=== PATIENT | male | born 1960 | race Hispanic/Latino ===

== ENCOUNTER → 2018-04-06 | Day surgery (SDC) | payer OTHER ==
[2018-04-05 11:35] VITALS: BMI 36.8
--- NOTE | 2018-04-06 08:19 | HP ---
DATE OF ADMISSION: 04/06/2018 HISTORY OF PRESENT ILLNESS: This is a 57-year-old [place] male, who comes in for colonoscopy for colon cancer screenig. The patient also complains of indigestion, heartburn, and dyspepsia. The patient also had_ chronic dyspeptic symptoms. ALLERGIES: None. MEDICAL ILLNESSES: Hyperlipidemia and umbilical hernia. SOCIAL HISTORY: Patient is . Does not smoke, but drinks alcohol socially. PHYSICAL EXAMINATION: VITAL SIGNS: Pulse is 70, blood pressure 130/80. HEENT: Conjunctivae clear. CARDIOVASCULAR: First and second heart sounds. LUNGS: Clear to auscultation. ABDOMEN: Soft . No organomegaly. No tenderness. No masses. ADMITTING DIAGNOSES: 1. Chronic acid reflux. 2. Colon cancer screening. PLAN: EGD and colonoscopy. MTDD
== END ==
LOC: SDC 07:02
PROVIDERS: ATTEND Internal Medicine Gastroenterology
DX: Z12.11 Encounter for screening for malignant neoplasm of colon (principal); Z53.9 Procedure and treatment not carried out, unspecified reason; E78.5 Hyperlipidemia, unspecified; R10.13 Epigastric pain

== ENCOUNTER 2021-09-03 10:57 | Day surgery (SDC) | payer OTHER ==
[2021-08-30 10:11] VITALS: BMI 34.8
[2021-09-03] MEDS ORDERED: Bupivacaine PF 0.5% 30 ML VIAL ONE (12:08)
[2021-09-03] MEDS ORDERED: Bacitracin Zinc Ointment 30 gm TUBE ONE (12:08)
[2021-09-03] MEDS ORDERED: Betamet Acet/Betamet Na Ph 30 MG/5 ML VIAL ONE (12:08)
[2021-09-03] MEDS ORDERED: Fentanyl 100 MCG/2 ML VIAL ONE (12:53)
[2021-09-03] MEDS ORDERED: ceFAZolin 2 GM/Dextrose 50 ML IVPB ONE (12:54)
[2021-09-03] MEDS ORDERED: Ketorolac Tromethamine 30 MG/ML VIAL ONE (14:26)
== END 2021-09-03 15:45 | disposition home or self-care (01) ==
LOC: SDC 10:57
PROVIDERS: ATTEND Orthopaedic Surgery Hand Surgery
PROC: 01N50ZZ Release Median Nerve, Open Approach (ICD-10-PCS; principal; 2021-09-03)
DX: G56.03 Carpal tunnel syndrome, bilateral upper limbs (principal); M18.11 Unilateral primary osteoarthritis of first carpometacarpal joint, right hand; E78.5 Hyperlipidemia, unspecified; Z79.899 Other long term (current) drug therapy
CPT/HCPCS: J0690; J0702; J1885; J3010; S0020

== ENCOUNTER 2024-03-25 05:21 | Observation (INO) | payer OTHER ==
[2024-03-20 12:33] VITALS: BMI 36.5
[2024-03-25] MEDS ORDERED: Sodium Chloride 0.9% 100 ML ONE ×2 (06:04→06:54)
[2024-03-25] MEDS ORDERED: Tranexamic Acid 1,000 MG/10 ML VIAL ONE ×2 (06:04→10:05)
[2024-03-25] MEDS ORDERED: Midazolam HCl 2 mg/2 ml Vial ONE (06:12)
[2024-03-25] MEDS ORDERED: fentaNYL PF 100 MCG/2 ML SYRINGE ONE (06:12)
[2024-03-25] MEDS ORDERED: Vancomycin (BATCH) 2 GM in Premix 1 BAG IVPB SCH (06:15)
[2024-03-25] MEDS ORDERED: Lidocaine 1% PF 5 ML VIAL ONE (06:19)
[2024-03-25] MEDS ORDERED: PROPOFOL 20 ML ONE (06:19)
[2024-03-25] MEDS ORDERED: Dexamethasone 20 MG/5 ML VIAL ONE (06:20)
[2024-03-25] MEDS ORDERED: Ketorolac Tromethamine 30 MG (1 mL) VIAL ONE (06:20)
[2024-03-25] MEDS ORDERED: Ondansetron PF 4 MG/2 ML Vial ONE (06:20)
[2024-03-25] MEDS ORDERED: Bupivacaine 0.25% HCL 30 ML VIAL ONE (06:54)
[2024-03-25] MEDS ORDERED: CEFAZOLIN 2 GM VIAL ONE (06:54)
[2024-03-25] MEDS ORDERED: Bupivacaine HCl 0.5%/Epinephrine 1:200,000/PF 30 ml Vial ONE (07:00)
[2024-03-25] MEDS ORDERED: diphenhydrAMINE 25 MG CAP PO PRN (07:10)
[2024-03-25] MEDS ORDERED: HYDROcodone/Acetaminophen 10/325 mg Tablet PO PRN (07:10)
[2024-03-25] MEDS ORDERED: Ondansetron PF 4 MG/2 ML Vial IVP PRN (07:10)
[2024-03-25] MEDS ORDERED: traMADol HCl 50 MG TAB PO PRN ×2 (07:10)
[2024-03-25] MEDS ORDERED: Acetaminophen 325 MG TAB PO PRN (07:10)
[2024-03-25] MEDS ORDERED: Promethazine HCl 25 MG/ML VIAL IM PRN (07:10)
[2024-03-25] MEDS ORDERED: Zolpidem Tartrate 5 MG TAB PO PRN (07:10)
[2024-03-25] MEDS ORDERED: ALPRAZolam 0.25 MG TAB PO PRN ×2 (07:12→07:16)
[2024-03-25] MEDS ORDERED: Tranexamic Acid 1,000 MG in Sodium Chloride 0.9% 100 ML IVPB SCH (07:15)
[2024-03-25] MEDS ORDERED: PHENYLEPHRINE-NS 100 MCG/ML 10 ML SYRINGE ONE (07:26)
[2024-03-25] MEDS ORDERED: fentaNYL 50 mcg/mL 1 mL Vial SLOW IVP PRN (07:47)
[2024-03-25] MEDS ORDERED: Ropivacaine 0.2% 550 ML 550 ML NERVE BLCK SCH (08:00)
[2024-03-25] MEDS ORDERED: fentaNYL 50 mcg/mL 1 mL Vial ONE (08:56)
[2024-03-25] MEDS ORDERED: HYDROmorphone 0.5 MG/0.5 ML SYRINGE ONE ×2 (10:04→10:20)
[2024-03-25] MEDS ORDERED: Meperidine HCl/PF 25 MG (1 mL) VIAL ONE (10:05)
[2024-03-25] MEDS ORDERED: Bupivacaine PF 0.5% 30 ML VIAL ONE (11:29)
[2024-03-25] MEDS ORDERED: Lidocaine 1% (PF) 30 ML VIAL ONE (11:29)
[2024-03-25] MEDS: Gabapentin 400 MG CAP PO SCH (14:51)
[2024-03-25] MEDS: CEFAZOLIN 2 GM in Sodium Chloride 0.9% 100 ML IVPB SCH (14:52)
[2024-03-25] MEDS: Ketorolac Tromethamine 30 MG (1 mL) VIAL IVP SCH (17:36)
[2024-03-25] MEDS: Vancomycin 1.5 GM in Sodium Chloride 0.9% 250 ML 300 ML IVPB SCH (17:37)
[2024-03-25] MEDS: Ferrous Gluconate 324 MG TAB PO SCH (18:27)
[2024-03-25] MEDS: Aspirin 81 mg Enteric Coated Tablet PO SCH (18:27)
[2024-03-25] MEDS: Multivitamin W/ Minerals 1 TAB PO SCH (18:27)
[2024-03-25] MEDS: Sodium Chloride 0.9% 1,000 ML IV SCH (18:27)
[2024-03-25] MEDS: Senokot S 8.6-50 MG TAB PO SCH (18:28)
[2024-03-25] MEDS ORDERED: Rosuvastatin 10 MG TAB PO SCH (21:00)
[2024-03-25] MEDS: HYDROcodone/Acetaminophen 10/325 mg Tablet PO PRN (21:50)
[2024-03-25] MEDS: Rosuvastatin 20 MG TAB PO SCH (21:52)
[2024-03-26 05:37] LABS: Hematocrit 34.6 % (42.0-52.0); Hemoglobin 11.6 g/dL (14.0-18.0); Mean Corpuscular HGB CONC 33.5 g/dL (32.0-36.0); Mean Corpuscular Volume 95.3 fL (78.0-98.0); Mean Platelet Volume 10.4 fL (7.4-10.4); Platelet Count 179 10x3/uL (130-400); RBC Distribution Width 12.7 % (11.5-14.5); Red Blood Cell (RBC) Count 3.63 mill/uL (4.70-6.10)
[2024-03-26] MEDS: FLU (Fluarix Triv) TS24-25(6MOS UP)/PF 45 MCG/0.5 ML Syringe IM ONE (06:36)
[2024-03-26 06:42] VITALS: BP 111/69; TEMP 97.9
== END 2024-03-26 14:01 | disposition home or self-care (01) ==
LOC: SDC 05:21 → SURG B 12:03 → SDC 15:08
PROVIDERS: ADMIT Orthopaedic Surgery; ATTEND Orthopaedic Surgery
PROC: 0SRC0JZ Replacement of Right Knee Joint with Synthetic Substitute, Open Approach (ICD-10-PCS; principal; 2024-03-26)
PROC: 3E0T3BZ Introduction of Anesthetic Agent into Peripheral Nerves and Plexi, Percutaneous Approach (ICD-10-PCS; 2024-03-26)
DX: M17.11 Unilateral primary osteoarthritis, right knee (principal); E78.5 Hyperlipidemia, unspecified; K42.9 Umbilical hernia without obstruction or gangrene; E11.9 Type 2 diabetes mellitus without complications; F41.9 Anxiety disorder, unspecified; E78.00 Pure hypercholesterolemia, unspecified; Z86.16 Personal history of COVID-19; Z79.899 Other long term (current) drug therapy
CPT/HCPCS: 0055T; 27447; 64448; 36415; 85027; 90656; A4306; C1713; C1776; C1889; J0665; J1100; J1170; J1885; J2175; J2250; J2405; J2704; J2795; J3010; J3370; J7050

== ENCOUNTER 2025-05-09 11:27 | Outpatient (CLI) | payer OTHER | END 2025-05-09 11:28 | disposition home or self-care (01) | LOC: SCSRAD 11:27 | PROVIDERS: ATTEND Family Medicine | DX: M54.50 Low back pain, unspecified (principal); G89.29 Other chronic pain; M47.816 Spondylosis without myelopathy or radiculopathy, lumbar region | CPT/HCPCS: 72100 ==